=== PATIENT | female | born 1940 | race Caucasian/White ===

== ENCOUNTER 2017-06-28 07:02 | Day surgery (SDC) | payer MEDICARE, OTHER ==
[2017-06-28] MEDS ORDERED: LIDOCAINE 1% (MDV) 20 ML INJ (08:19)
[2017-06-28] MEDS ORDERED: IODIXANOL LOCM 100 ML BTL (08:19)
[2017-06-28] MEDS ORDERED: MIDAZOLAM 1 MG/ML 2 ML INJ (08:19)
[2017-06-28] MEDS ORDERED: HEPARIN 1000 UNITS/ML 10 ML INJ (08:19)
[2017-06-28] MEDS ORDERED: FENTAnyl 50 MCG/ML VIAL (08:19)
[2017-06-28] MEDS ORDERED: VERAPAMIL 5 MG INJ (08:20)
[2017-06-28] MEDS ORDERED: NITROGLYCERIN (IC) 100 MCG/ML INJ (08:20)
[2017-06-28 08:32] LABS: ADD MAN DIFF? NO
[2017-06-28 08:52] LABS: BASOPHIL # 0.1 10^3/ul (0.0-0.1); BASOPHILS % 1.3 % (0.0-2.0); EOSINOPHILS # 0.9 10^3/ul (0.0-0.5); EOSINOPHILS % 11.9 % (0.0-7.0); HEMOGLOBIN 14.4 g/dl (12.0-16.0); LYMPHOCYTES # 2.2 10^3/ul (0.8-2.9); LYMPHOCYTES % 28.7 % (15.0-51.0); MEAN CORPUSCULAR HEMOGLOBIN 32.3 pg (29.0-33.0); MEAN CORPUSCULAR HGB CONC 34.3 g/dl (32.0-37.0); MEAN CORPUSCULAR VOLUME 94.2 fl (82.0-101.0); MEAN PLATELET VOLUME 11.1 fl (7.4-10.4); MONOCYTE # 0.6 10^3/ul (0.3-0.9); MONOCYTES % 7.7 % (0.0-11.0); NEUTROPHIL # 3.8 10^3/ul (1.6-7.5); PLATELET COUNT 185 10^3/UL (140-415); RED BLOOD COUNT 4.46 10^6/ul (4.20-5.40); RED CELL DISTRIBUTION WIDTH 12.4 % (11.5-14.5)
[2017-06-28 08:52] LABS: WHITE BLOOD COUNT 7.5 10^3/ul (4.8-10.8)
[2017-06-28 09:03] LABS: INR 0.86; PROTIME 11.8 Sec (11.9-14.9); PT RATIO 0.9
[2017-06-28 09:04] LABS: ANION GAP 16 (8-16); CARBON DIOXIDE 26 mmol/L (21-31); CHLORIDE 106 mmol/L (97-110); CHOLESTEROL 163 mg/dl (100-200); GLUCOSE 126 mg/dl (70-220); HDL CHOLESTEROL 54 mg/dl (33-92); LDL CHOLESTEROL,CALCULATED 79 mg/dl; PARTIAL THROMBOPLASTIN TIME 30.9 Sec (25.0-35.0); TRIGLYCERIDES 149 mg/dl (0-149)
[2017-06-28 09:13] LABS: POTASSIUM 3.4 mmol/L (3.5-5.1)
[2017-06-28 09:14] LABS: BLOOD UREA NITROGEN 16 mg/dl (7-20); CALCIUM 9.9 mg/dl (8.4-10.2); CREATININE 0.73 mg/dl (0.44-1.00); SODIUM 145 mmol/L (135-144)
[2017-06-28] MEDS ORDERED: morphine 2 MG INJ IV (10:30)
[2017-06-28] MEDS ORDERED: ACETAMINOPHEN 325 MG TAB PO (10:30)
[2017-06-28] MEDS ORDERED: ONDANSETRON 4 MG INJ IV (10:30)
[2017-06-28] MEDS ORDERED: AL HYDROX/MG HYDROX/SIMETH 30 ML CUP PO (10:30)
[2017-06-28] MEDS: SOD CHLORIDE 0.9% 1,000 ML IV (10:39)
== END 2017-06-28 15:30 | disposition home or self-care (01) ==
LOC: SDS 07:02
DX: I25.10 Atherosclerotic heart disease of native coronary artery without angina pectoris (principal); R94.39 Abnormal result of other cardiovascular function study; I10 Essential (primary) hypertension
CPT/HCPCS: 71045; 80048; 80061; 85025; 85610; 85730; 93005; 93458